=== PATIENT | male | born 1960 | race Caucasian/White ===

== ENCOUNTER → 2016-08-21 | Outpatient (CLI) | payer OTHER ==
--- NOTE | 2016-08-22 12:55 | ECHOS ---
DATE OF SERVICE: 08/21/2016 AGE: 56Y SEX: M HT: 70" WT: 222 lbs. Protocol Emery: X Others: Stress Echo Stage: III Dur. of Exercise: 7 minutes *Heart Rate Blood Pressure *Rest: 70 Rest: 130/54 * *Max. Achieved: 138 Maximum BP: 203/100 85% PMHR: 139 100% PMHR: 164 *METS: 8.1 INDICATIONS: Abnormal EKG. MEDICATIONS: Patient was exercised for a total period of 7 minutes. A peak heart rate of 138 was achieved. Maximum blood pressure of 203/100 mmHg was noted. Resting EKG shows normal sinus rhythm with normal MN interval and QRS duration and normal ST-T waves. No ST segment depression suggestive of ischemia is noted. The patient did not complain of any anginal pain during the test. The baseline echocardiographic images reveal normal left ventricular chamber size with normal left ventricular systolic function. In the immediate postexercise period, normal increase in the wall thickness and contractility is noted. FINAL IMPRESSION: This stress echocardiographic study is negative for stress-induced ischemia. EKG portion of the stress test is not suggestive of ischemia. He did not complain of any anginal pain during the test. No dysrhythmias are noted.
== END ==
LOC: RADNMMAIN 09:11
PROVIDERS: ATTEND Family Medicine
DX: R00.9 Unspecified abnormalities of heart beat (principal); R94.31 Abnormal electrocardiogram [ECG] [EKG]
CPT/HCPCS: 93017; 93350